=== PATIENT | female | born 1965 | race Caucasian/White ===

== ENCOUNTER 2025-01-22 23:26 | Emergency (ER) | payer BC, SELFPAY ==
[2025-01-22 23:39] VITALS: BP 156/97
[2025-01-22 23:45] VITALS: BMI 25.3
[2025-01-23] VITALS (7 sets, daily range): BP systolic 115–141; BP diastolic 70–90
[2025-01-23 00:03] LABS: Hematocrit 39.0 % (37.0-47.0); Hemoglobin 13.2 g/dL (12.0-16.0); Mean Corp Hgb Conc. 33.8 g/dL (33.0-37.0); Mean Corpuscular Volume 89.7 fL (81.0-99.0); Nucleated Red Blood Cells % 0 %; Platelet Count 246 10^3/uL (130-400); Red Cell Dist. Width 12.9 % (11.5-14.5)
[2025-01-23 00:22] LABS: ALT (SGPT) 28 U/L (0-35); AST (SGOT) 26 U/L (14-36); Albumin 4.4 g/dl (3.5-5.0); Alkaline Phosphatase 58 U/L (38-126); Blood Urea Nitrogen 16 mg/dl (7-17); Calcium 10.0 mg/dl (8.4-10.2); Carbon Dioxide 27 mmol/L (22-30); Chloride 106 mmol/L (98-107); Estimated Creatinine Clearance 80 ml/min; Glucose 105 mg/dl (70-99); Potassium 3.9 mmol/L (3.5-5.1); Sodium 139 mmol/L (135-145); Total Protein 7.1 g/dl (6.3-8.2); eGFR > 60.00
[2025-01-23 00:36] LABS: Troponin I 0.014 ng/ml
[2025-01-23 01:44] LABS: TSH 1.89 uIU/ml (0.47-4.68)
--- NOTE | 2025-01-23 02:40 | ED.GENMED ---
History of Present Illness
General
Chief Complaint: Heart Rate Problem
Source: patient and spouse
Exam Limitations: none
Time Seen by Provider: 01/23/25 00:37
Nursing documentation reviewed up to this point in time: agreed with
History of Present Illness
History of Present Illness:
Note:
CHIEF COMPLAINT(S)
Palpitations and episodes of numbness.
HISTORY OF PRESENT ILLNESS
The patient is a 59-year-old female who presents with episodes of tachycardia that waken her from sleep, lasting approximately 30 to 40 minutes. These episodes have occurred multiple times, including the previous Sunday and a couple of weeks prior.
The patient states, 'I just felt kind of numb,' particularly over her shoulder, but the episodes resolved without additional intervention. She described these episodes as being concerning, resulting in fear and apprehension. The patient has a
background of Graves disease that previously led to a critical incident where she ended up in the ICU due to atrial fibrillation. She reports that her thyroid levels are being monitored and have been stable. She is due to follow-up with her
[employer] and has an echocardiogram scheduled in two weeks. During these episodes, she monitors her heart rate using a Fitbit.
CHRONIC MEDICAL CONDITIONS SIGNIFICANTLY AFFECTING CARE
Graves disease with a history of atrial fibrillation.
PHYSICAL EXAM
General: Alert, no acute distress.
Skin: Warm, dry.
Head: Normocephalic, atraumatic.
Neck: Supple, trachea midline.
Eye Ears, Nose, Mouth and Throat: Oral mucosa moist.
Cardiovascular: Normal peripheral perfusion, No edema.
Respiratory: Respirations are non-labored.
Gastrointestinal: Abdomen non-distended.
Back: Normal range of motion, Normal alignment.
Musculoskeletal: Normal range of motion, normal strength.
Neurological: Alert and oriented to person, place, time, and situation, No focal neurological deficit observed.
Psychiatric: Cooperative, appropriate mood & affect.
PLAN
The patient will remain under observation until lab results concerning her thyroid levels are available. Her heart rate and rhythm will continue to be monitored. Given her history of atrial fibrillation related to thyroid imbalances, these results
are necessary for her discharge planning. She will follow up with her [employer] as scheduled.
DIFFERENTIAL DIAGNOSIS
The Differential Diagnosis includes, in no particular order and is not limited to:
1. Atrial fibrillation
2. Hyperthyroidism
3. Paroxysmal supraventricular tachycardia
4. Panic attacks
5. Mitral valve prolapse
6. Cardiomyopathy
7. Electrolyte imbalance
8. Thyroid storm
9. Anxiety
10. Coronary artery disease
CARE-UPDATE
01/23/25 - :17
Chest x-ray is negative
CARE-UPDATE
01/23/25:23
No Content
Disposition:
SUMMARY OF ENCOUNTER
The patient is a 59-year-old female who presented to the emergency department with palpitations and episodes of numbness, particularly involving her fingers, which have persisted for weeks. She has a history of thyroid issues and is followed by
cardiology. On evaluation, her lab work regarding thyroid levels was satisfactory. An EKG was conducted, showing normal sinus rhythm with a rate of 90 beats per minute, normal intervals, and left axis deviation. There was no evidence of acute
ischemia present.
INDEPENDENT REVIEW OF LABS AND INTERPRETATION OF TESTS
My independent review of the EKG indicates normal sinus rhythm at a rate of 90 bpm with normal intervals and left axis deviation. No acute ischemia was noted.
MEDICAL DECISION MAKING
-Complexity of Data Reviewed: Chronic conditions affecting care include Graves disease with a history of atrial fibrillation.
-Data:
Category 1
My independent interpretation of EKG showed normal sinus rhythm, rate of 90 bpm, with normal intervals and left axis deviation. This ruled out acute ischemia.
Category 3
Discussion of management with other physician, healthcare provider, other source: Follow-up and management with [employer] as planned are crucial.
DIAGNOSIS
1. Palpitations (R00.2)
2. Episodes of Numbness (R20.9)
Phy Exam
Physical Exam
Physical Exam:
.
Course
Orders/Labs/Results
Orders:
Orders
01/22/25 23:28
ECG [Electrocardiogram (*1)] Urgent
Reason for Study: Chest Pain
01/22/25 23:29
EKG- Treatment ONCE
01/22/25 23:45
Cardiac Monitoring- Treatment ONCE
IV Insert/Care/Rem.- Treatment PRN
O2 Therapy [RESP] Urgent
Titrate/Wean O2 to maintain O2 sat greater than (%): 93
Special Instructions: TO MAINTAIN CONTINUOUS O2 SATS >/= 93%
Pulse Ox/cont/shift [RESP] Urgent
Quantity: 1
Special Instructions: continuous pulse ox
01/22/25 23:50
Complete Blood Count/With Diff Urgent
Comprehensive Metabolic Panel Urgent
NT-proBNP Urgent
Troponin I Urgent
01/23/25 00:00
CR Chest - 2 Views Urgent
Reason For Exam: respiratory distress
01/23/25 00:46
Add On- LAB Urgent
Tests Added?: T3
01/23/25 00:48
TSH Urgent
Total Thyroxine Urgent
Abnormal Lab Results
01/22/25
23:50
MPV 10.8 H fL
(7.4-10.4)
Monocytes % 10.3 H %
(1.7-9.3)
Glucose 105 H mg/dl
(70-99)
01/22/25 23:50
01/22/25 23:50
Vital Signs
Initial and Last Documented VS:
Initial Vital Signs
Temp Pulse Resp BP Pulse Ox
98.3 F 88 20 156/97 98
01/22/25 23:39 01/22/25 23:39 01/22/25 23:39 01/22/25 23:39 01/22/25 23:39
Last Documented Vital Signs
Temp Pulse Resp BP Pulse Ox
98.3 F 73 16 115/81 96
01/22/25 23:39 01/23/25 03:00 01/23/25 03:00 01/23/25 03:00 01/23/25 03:00
*Pulse Oximetry
SaO2: 96
Oxygen Mode of Delivery: Room air
Patient hypoxic: no
*Critical Care Note
Total Time (30-74mins, 75-104mins- exclusive of procedures): Not Applicable
ED Attending Note
-
Portions of this chart may have been created with voice recognition software.� Occasional wrong word or��sound alike� substitutions may have occurred due to the inherent limitations of voice recognition software.
Discharge Plan
Departure
Patient Disposition: Home (Routine Discharge)
Date of Disposition: 01/23/25
Time of Disposition: 02:42
Patient with high blood pressure during this ER visit?: No
Condition: Good
Discharge Problem:
Palpitations
Instructions: Palpitations (DC)
Referrals:
Jr Teixeira MD [Active, Cardiology] - Keep scheduled appt
Sheela Lemons CRNP [Family Provider]
Activity Restrictions/Additional Instructions:
Thank You for choosing [facility].
It was a pleasure meeting you and taking part in your care. We hope for your continued healing and wellness.
Please read discharge instructions in their entirety. However, they are for general education and may not describe your exact diagnosis at discharge. Information on your ER visit and medical conditions were discussed with you along with appropriate
follow up information...
If indicated, please take your medications as instructed and indicated on discharge paperwork.
Please schedule a follow up appointment as directed. Call to schedule an appointment
Please return to the emergency department with ANY change in, persisting, or worsening of symptoms. If any of your symptoms do not improve, or persist, or become more severe within 6-12 hours, please return to the emergency department for further
care.
Please return to the emergency department if you develop a headache, neck pain/stiffness, fever greater than 100.4F, chest pain, shortness of breath, persistent nausea, vomiting, slurred speech, difficulty walking, numbness/tingling, weakness, signs
of infection or any other symptoms that are worrisome to you.
If you have any questions or concerns please do not hesitate to call the Hospital at .
Interventions
Interventions:
*Risk Screen - Suicide Last Done: 01/22/25 23:39
*General Assessment Last Done: 01/22/25 23:39
*Neglect/Abuse Screening Last Done: 01/22/25 23:39
*ED- Fall Risk Assessment Last Done: 01/22/25 23:39
*ED COVID-19 Vaccine History Last Done: 01/22/25 23:39
*ED Influenza Vaccine History Last Done: 01/22/25 23:39
*Nursing Disposition Last Done: 01/23/25 03:13
ED- Cardiac Assessment Last Done: 01/23/25 01:15
ED- Pulmonary Assessment Last Done: 01/23/25 01:15
Discharge Date and Time
Discharge Date/Time: 01/23/25 03:14
Print Language: WELSH
== END 2025-01-23 03:14 | disposition home or self-care (01) ==
LOC: EMR 23:26
PROVIDERS: Emergency Medicine; EMERGENCY PHYSICIAN Student in an Organized Health Care Education/Training Program; FAMILY PHYSICIAN Nurse Practitioner Adult Health
DX: R00.2 Palpitations (principal); I48.91 Unspecified atrial fibrillation; E05.00 Thyrotoxicosis with diffuse goiter without thyrotoxic crisis or storm
CPT/HCPCS: 99285; 71046; 80053; 83880; 84436; 84443; 84484; 85025; 93005